=== PATIENT | female | born 1970 | race Two or more races ===

== ENCOUNTER 2016-08-07 14:20 | Outpatient (CLI) | payer BC | END 2016-08-07 23:59 | disposition home or self-care (01) | LOC: WOU 14:20 | PROVIDERS: ATTEND Surgery | DX: L88 Pyoderma gangrenosum (principal); M32.9 Systemic lupus erythematosus, unspecified; Z86.718 Personal history of other venous thrombosis and embolism; Z68.28 Body mass index [BMI] 28.0-28.9, adult; Z87.891 Personal history of nicotine dependence; Z86.19 Personal history of other infectious and parasitic diseases; Z90.11 Acquired absence of right breast and nipple | CPT/HCPCS: 99205; A6209; A6402; A6407; G0463 ==